=== PATIENT | female | born 1975 | race Caucasian/White ===

== ENCOUNTER 2020-10-16 14:52 | Observation (INO) | payer OTHER ==
[2020-10-16] MEDS ORDERED: NORMAL SALINE 500 ML IV ONE (15:19)
--- NOTE | 2020-10-16 15:19 | ER Document Report ---
ED Medical Screen (RME) - General Chief Complaint: Vomiting Stated Complaint: ABDOMINAL PAIN,VOMITING TRAVEL OUTSIDE OF THE [place] IN LAST 30 DAYS: No - HPI Notes: Rapid Medical Exam HPI: 45-year-old female presents to the ER complaining of epigastric pain since yesterday morning. Associated nausea and vomiting. Minimal p.o. intake. Only tolerating p.o. fluids. Denies bowel changes or urinary changes. No fevers or chills. No prior abdominal surgeries. Physical Exam: GENERAL: well-nourished and in mild distress due to pain/discomfort. HEAD: Atraumatic, normocephalic. ENT: Moist mucous membranes. RESP: Respirations even and unlabored CV- Regular rate. NEURO: No focal neurological deficits. Moves all extremities spontaneously and on command. My involvement in this patients care was limited to a rapid initial assessment. A comprehensive ED assessment and evaluation of the patient, analysis of test results, treatment, and completion of the medical decision making process will be performed by other ER providers. 10/16/20 15:16 Physical Exam - Vital signs Vitals: Temp Pulse Resp BP Pulse Ox 97.6 F 63 20 168/80 H 100 10/16/20 14:56 10/16/20 14:56 10/16/20 14:56 10/16/20 14:56 10/16/20 14:56 Course - Vital Signs Vital signs: Temp Pulse Resp BP Pulse Ox 97.6 F 63 20 168/80 H 100 10/16/20 14:56 10/16/20 14:56 10/16/20 14:56 10/16/20 14:56 10/16/20 14:56
--- NOTE | 2020-10-16 16:31 | RADIOLOGY REPORT (SQ) ---
EXAM DESCRIPTION: U/S ABDOMEN LIMITED W/O DOP IMAGES COMPLETED DATE/TIME: 10/16/2020 4:12 pm REASON FOR STUDY: epigastric pain w/ nausea/vomiting COMPARISON: None. TECHNIQUE: Dynamic and static grayscale images acquired of the abdomen and recorded on PACS. Additio nal selected color Doppler and spectral images recorded. LIMITATIONS: None. FINDINGS: PANCREAS: Suboptimal evaluation due to overlying bowel gas. LIVER: The liver measures 15.8 cm in length, within the upper limits of normal for size. Fatty live r. Focal fatty sparing near the caudate lobe. LIVER VASCULATURE: Normal directional flow of the main portal vein and hepatic veins. GALLBLADDER: No stones. The gallbladder wall measures 2.0 mm, normal wall thickness. No pericholecys tic fluid. ULTRASOUND-DETECTED MEZA'S SIGN: Negative. INTRAHEPATIC DUCTS AND COMMON DUCT: CBD measures 6.6 mm which is at the upper limits of normal. The intrahepatic ducts normal caliber. No filling defects. INFERIOR VENA CAVA: Normal flow. AORTA: No aneurysm. RIGHT KIDNEY: The right kidney measures 10.8 cm in length, normal size. Normal echogenicity. No liz d or suspicious masses. No hydronephrosis. No calcifications. PERITONEAL AND RIGHT PLEURAL SPACE: No ascites or effusions. OTHER: No other significant findings. IMPRESSION: 1. Fatty liver. 2. Suboptimal visualization of the pancreas due to overlying bowel gas. 3. The common bile duct measures 6.6 mm in diameter, at the upper limits of normal. TECHNICAL DOCUMENTATION: JOB ID: [id number] 2010 [employer]- All Rights Reserved Reading location - IP/workstation name: [email or web address]
[2020-10-16 17:10] LABS: APPEARANCE,URINE SLIGHTLY-CLOUDY; BILIRUBIN,URINE NEGATIVE (NEGATIVE); COLOR,URINE YELLOW; GLUCOSE, URINE NEGATIVE (NEGATIVE); KETONES,URINE 20 mg/dL (NEGATIVE); LEUKOCYTE ESTERASE,URINE SMALL (NEGATIVE); NITRITE,URINE NEGATIVE (NEGATIVE); PROTEIN,URINE 30 mg/dL (NEGATIVE); URINE SPECIFIC GRAVITY 1.023; UROBILINOGEN,URINE NEGATIVE mg/dL (<2.0)
[2020-10-16 18:17] LABS: HEMATOCRIT 42.1 % (36.0-47.0); HEMOGLOBIN 14.1 g/dL (12.0-15.5); MEAN CORPUSCULAR HEMOGLOBIN 29.1 pg (27.0-33.4); MEAN CORPUSCULAR HGB CONC 33.4 g/dL (32.0-36.0); MEAN CORPUSCULAR VOLUME 87 fl (80-97); PLATELET COUNT 246 10^3/uL (150-450); RED BLOOD COUNT 4.83 10^6/uL (3.72-5.28); RED CELL DISTRIBUTION WIDTH 13.8 % (11.5-14.0); WHITE BLOOD COUNT 18.8 10^3/uL (4.0-10.5)
--- NOTE | 2020-10-16 18:23 | ER Document Report ---
ED GI/ - General Chief Complaint: Abdominal Pain Stated Complaint: ABDOMINAL PAIN,VOMITING Time Seen by Provider: 10/16/20 18:01 Notes: Patient is a 45-year-old female presents emergency department with a chief complaint of right upper quadrant abdominal pain. Her symptoms started yesterday. Patient states that her pain got progressively worse. She has been nauseated and has been vomiting. Denies any diarrhea. Denies any past medical history. She does not take any medicines on a regular basis. TRAVEL OUTSIDE OF THE [place] IN LAST 30 DAYS: No - Related Data Allergies/Adverse Reactions: Sulfa (Sulfonamide Antibiotics) Allergy (Verified 10/16/20 15:21) Past Medical History - Social History Smoking Status: Never Smoker Chew tobacco use (# tins/day): No Frequency of alcohol use: None Drug Abuse: None Family History: Reviewed & Not Pertinent Review of Systems - Review of Systems Notes: REVIEW OF SYSTEMS: CONSTITUTIONAL : Denies recent illness. Denies recent unintentional weight loss. Denies fever, chills, or sweats. EENT: Denies eye, ear, throat, or mouth pain, discharge, or symptoms. Denies nasal or sinus congestion. CARDIOVASCULAR: Denies chest pain. RESPIRATORY: Denies shortness of breath, cough, congestion, difficulty breathing, or wheezing. GASTROINTESTINAL: See HPI. GENITOURINARY: Denies difficulty urinating, burning, blood in urine, urgency or frequency. MUSCULOSKELETAL: Denies neck and back pain. Denies joint pain or swelling. SKIN: Denies rash, itchiness, or lesions HEMATOLOGIC : Denies easy bruising or bleeding. LYMPHATIC: Denies swollen, painful, enlarged glands. NEUROLOGICAL: Denies no numbness or tingling denies weakness. Denies headache. Denies altered mental status. Denies alteration in speech. PSYCHIATRIC: Denies stress, anxiety, alteration in sleep patterns, or depres geraldo. All other systems reviewed and negative. Physical Exam - Vital signs Vitals: Temp Pulse Resp BP Pulse Ox 97.6 F 63 20 168/80 H 100 10/16/20 14:56 10/16/20 14:56 10/16/20 14:56 10/16/20 14:56 10/16/20 14:56 - Notes Notes: PHYSICAL EXAMINATION: GENERAL: Appears well, healthy, well-nourished, no acute distress. HEAD: Normocephalic, atraumatic. EYES: PERRL, conjunctiva normal, all extraocular movements intact, sclera nonicteric ENT: Moist mucous membranes. NECK: Supple, no noticeable swelling, redness, rash. Normal range of motion. LUNGS: Equal breath sounds bilaterally and clear to auscultation. No wheezes rales or rhonchi. CARDIOVASCULAR: S1-S2, regular rate, regular rhythm. Radial pulses 2+, normal. ABDOMEN: Normoactive bowel sounds. Very tender right upper quadrant abdomen. EXTREMITIES: Normal strength and range of motion, no pitting or edema. No cyanosis. NEUROLOGICAL: Moves all extremities upon command. Strength 5/5 in all extremities. PSYCH: Normal mood, normal affect. SKIN: Warm, dry. No rash, lesions, ulcerations noted. Normal skin turgor. Course - Re-evaluation Re-evalutation: 10/16/20 19:18 Patient has a leukocytosis of 18,800 with a left shift. Chemistries show sodium of 135 and a CO2 of 21. Patient received a liter of IV fluids. LFTs are all normal. Other chemistries are also normal. Urinalysis shows a mild amount of blood in her urine and a small amount of leukocytes. Will send her urine for culture. Patient's common bile duct is 6.6 mm in diameter. She does have a positive Mcbride sign based off my exam. I called Dr. Mena, the surgeon on- call. He will admit patient to the surgical floor. - Vital Signs Vital signs: Temp Pulse Resp BP Pulse Ox 97.6 F 63 20 168/80 H 100 10/16/20 14:56 10/16/20 14:56 10/16/20 14:56 10/16/20 14:56 10/16/20 14:56 - Laboratory Results Result Diagrams: 10/16/20 17:45 10/16/20 17:45 Laboratory Results Interpreted: 10/16/20 10/16/20 10/16/20 15:32 17:45 17:45 WBC 18.8 H Seg Neuts % (Manual) 88 H Lymphocytes % (Manual) 9 L Abs Neuts (Manual) 16.5 H Sodium 135.1 L Carbon Dioxide 21 L Glucose 127 H Urine Protein 30 H Urine Ketones 20 H Urine Blood MODERATE H Ur Leukocyte Esterase SMALL H Critical Laboratory Results Reviewed: No Critical Results - Radiology Results Critical Radiology Results Reviewed: No Critical Results Discharge - Discharge Clinical Impression: Cholecystitis, Right upper quadrant abdominal pain Condition: Stable Disposition: ADMITTED INPATIENT Admitting Provider: Surgicalist Unit Admitted: Surgical Floor
[2020-10-16] MEDS ORDERED: ONDANSETRON HCL INJ/PF 4 MG/2 ML SDV IV ONE (18:33)
[2020-10-16] MEDS ORDERED: HYDROMORPHONE HCL INJ/PF 2 MG/ML AMPULE IV ONE ×3 (18:33→23:38)
[2020-10-16 18:36] LABS: ABSOLUTE LYMPHOCYTES# (MANUAL) 1.7 10^3/uL (0.5-4.7); ABSOLUTE MONOCYTES # (MANUAL) 0.6 10^3/uL (0.1-1.4); BASOPHILS % (MANUAL) 0 % (0-2); EOSINOPHILS % (MANUAL) 0 % (0-6); LYMPHOCYTES % (MANUAL) 9 % (13-45); MONOCYTES % (MANUAL) 3 % (3-13); PLATELET COMMENT ADEQUATE; RBC MORPHOLOGY COMMENT NORMO-CYTIC/CHROMIC; SEGMENTED NEUTROPHILS % (MAN) 88 % (42-78); TOTAL CELLS COUNTED 100
[2020-10-16 18:57] LABS: ALBUMIN 4.1 g/dL (3.5-5.0); ALKALINE PHOSPHATASE 53 U/L (38-126); ANION GAP 9 (5-19); ASPARTATE AMINO TRANSFERASE 34 U/L (14-36); BILIRUBIN,DIRECT 0.2 mg/dL (0.0-0.4); BILIRUBIN,TOTAL 0.8 mg/dL (0.2-1.3); BLOOD UREA NITROGEN 8 mg/dL (7-20); CARBON DIOXIDE 21 mmol/L (22-30); CHLORIDE 105 mmol/L (98-107); GLUCOSE 127 mg/dL (75-110); POTASSIUM 4.3 mmol/L (3.6-5.0); TOTAL PROTEIN 7.3 g/dL (6.3-8.2)
[2020-10-16] MEDS ORDERED: CEFTRIAXONE INJ 1000 MG VIAL IV ONE (19:13)
[2020-10-16] MEDS ORDERED: CLINDAMYCIN 900 MG/D5W RTU 900 MG/50 ML RTUPB IV SCH (19:15)
--- NOTE | 2020-10-16 21:27 | ER Document Report ---
Doctor's Note Notes: 10/16/20 21:10 Dr. Mena reviewed patient's labs and ultrasound report and did not feel that patient needs surgical consultation at this time. He does not feel that patient's upper limits of normal common bile duct dilatation is worrisome for any biliary obstruction at this time. Patient without any elevated bilirubin or LFTs. He recommends chest x-ray and CT imaging to further evaluate the source of patient's pain symptoms. 10/16/20 21:27 Reevaluated patient, patient with right sided abdominal tenderness, no CVA tenderness. Patient reports pain 4 out of 5 at this time although denies needing any additional medication. 10/16/20 23:38 Patient's x-ray and CT report reviewed, patient findings worrisome for acute appendicitis. Consulted with surgeon Dr. Mena who does agree to accept patient for admission and plans to take her to the OR in the morning. Patient updated regarding plan of care at this time.
--- NOTE | 2020-10-16 23:00 | RADIOLOGY REPORT (SQ) ---
CHEST X-RAY 1 VIEW on 10/16/2020 at 10:32 PM CLINICAL INDICATION: Right upper quadrant abdominal pain COMPARISON: None FINDINGS: The lungs are clear. There is mild elevation of the right hemidiaphragm. Cardiac, hilar and mediastinal contours are within normal limits. Pulmonary vascularity is within normal limits. No bony abnormality is noted. IMPRESSION: No active disease.
--- NOTE | 2020-10-16 23:23 | RADIOLOGY REPORT (SQ) ---
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 Images were obtained after the administration of 100 mL of Omnipaque 350 intravenous contrast. FINDINGS: Limited evaluation of the lower chest reveals parenchymal bands about both lung bases, indicating areas of atelectasis and plus or scar. Assessment of the liver reveals a geographic area of hypodensity is noted about the left hepatic lobe adjacent to the falciform ligament, likely indicating third inflow artifact or focal fatty infiltration given its characteristic location. In addition, there is a small focus of hyperdensity located within the dome of the left hepatic lobe on image 21 of series 3 measuring 1.0 x 0.8 cm in size. Spleen, pancreas, gallbladder, and both adrenal glands appear normal. Kidneys enhance symmetrically. No hydronephrosis or hydroureter. The urinary bladder is well distended and shows no suspicious finding. Uterus shows no suspicious abnormality. Both ovaries are symmetric and configuration. An intrauterine contraceptive device is in position. A few scattered colonic diverticula are noted. No adjacent inflammation. However, the appendix is dilated and fluid-filled demonstrating adjacent inflammatory stranding as well as multiple appendicolith. No extraluminal free air or adjacent drainable fluid collections are identified. No evidence of bowel obstruction. Small fat-containing umbilical hernia. Vascular structures opacify with contrast normally. No suspicious lymphadenopathy is appreciated. No drainable fluid collections. Bone windows show no destructive osseous lesions. IMPRESSION: Findings are consistent with acute, uncomplicated appendicitis. Small hyperdense lesion located within the dome of the left hepatic lobe. In the absence of known primary malignancy or underlying chronic liver disease, this potentially corresponds to a flash filling hemangioma. Recommend definitive assessment with multiphasic CT or MR of the abdomen.
[2020-10-16] MEDS ORDERED: NORMAL SALINE 1000 ML 1,000 ML IV ONE (23:46)
[2020-10-16] MEDS ORDERED: ONDANSETRON HCL INJ/PF 4 MG/2 ML SDV IV PRN (23:53)
[2020-10-16] MEDS ORDERED: NORMAL SALINE 1000 ML 1,000 ML IV PRN (23:53)
--- NOTE | 2020-10-16 23:53 | PDOC H&P ---
History of Present Illness Admission Date/PCP: October 16, 2020 History of Present Illness: HUMA WINTERS is a 45 year old female, healthy with a 12-hour history of right-sided lower abdominal pain intense nausea. The patient denies any other systemic symptoms, she denies chills fever vomiting, or change of bowel habits. CT scan abdomen pelvis has been done which reveals acute nonperforated, uncomplicated appendicitis Social History Smoking Status: Never Smoker Electronic Cigarette use?: No Family History Family History: Reviewed & Not Pertinent Parental Family History Reviewed: No Children Family History Reviewed: No Sibling(s) Family History Reviewed.: No Medication/Allergy Home Medications: No Home Medications 10/16/20 Allergies/Adverse Reactions: Sulfa (Sulfonamide Antibiotics) Allergy (Verified 10/16/20 15:21) Physical Exam Vital Signs: Temp Pulse Resp BP Pulse Ox 97.6 F 63 16 150/79 H 97 10/16/20 14:56 10/16/20 14:56 10/16/20 21:17 10/16/20 22:31 10/16/20 22:31 Intake & Output 10/15/20 10/16/20 10/17/20 06:59 06:59 06:59 Intake Total 550 Balance 550 Weight 121.7 kg General appearance: PRESENT: mild distress, obese Head exam: PRESENT: atraumatic, normocephalic Eye exam: PRESENT: EOMI Mouth exam: PRESENT: moist, neck supple Neck exam: PRESENT: full ROM Respiratory exam: PRESENT: clear to auscultation otto Cardiovascular exam: PRESENT: RRR GI/Abdominal exam: PRESENT: soft - Not distended, no surgical scars noted, tenderness - Right lower quadrant with guarding and grimacing Rectal exam: PRESENT: deferred Extremities exam: PRESENT: full ROM Musculoskeletal exam: PRESENT: full ROM Neurological exam: PRESENT: alert, awake, oriented to time, CN II-XII grossly intact Psychiatric exam: PRESENT: anxious Skin exam: PRESENT: warm Results Laboratory Results: 10/16/20 17:45 10/16/20 17:45 10/16/20 10/16/20 10/16/20 15:32 17:45 17:45 WBC 18.8 H RBC 4.83 Hgb 14.1 Hct 42.1 MCV 87 MCH 29.1 MCHC 33.4 RDW 13.8 Plt Count 246 Seg Neutrophils % Not Reportable Sodium 135.1 L Potassium 4.3 Chloride 105 Carbon Dioxide 21 L Anion Gap 9 BUN 8 Creatinine 0.88 Est GFR ( Amer) > 60 Glucose 127 H Calcium 9.0 Total Bilirubin 0.8 AST 34 Alkaline Phosphatase 53 Total Protein 7.3 Albumin 4.1 Lipase 42.0 Urine Color YELLOW Urine Appearance SLIGHTLY-CLOUDY Urine pH 6.0 Ur Specific [place] 1.023 Urine Protein 30 H Urine Glucose (UA) NEGATIVE Urine Ketones 20 H Urine Blood MODERATE H Urine Nitrite NEGATIVE Ur Leukocyte Esterase SMALL H Urine WBC (Auto) 2 Urine RBC (Auto) 25 Impressions: Abdomen Ultrasound 10/16/20 15:19 IMPRESSION: 1. Fatty liver. 2. Suboptimal visualization of the pancreas due to overlying bowel gas. 3. The common bile duct measures 6.6 mm in diameter, at the upper limits of normal. Abdomen/Pelvis CT 10/16/20 21:25 IMPRESSION: Findings are consistent with acute, uncomplicated appendicitis. Small hyperdense lesion located within the dome of the left hepatic lobe. In the absence of known primary malignancy or underlying chronic liver disease, this potentially corresponds to a flash filling hemangioma. Recommend definitive assessment with multiphasic CT or MR of the abdomen. Chest X-Ray 10/16/20 21:25 IMPRESSION: No active disease. Assessment & Plan - Diagnosis (1) Abdominal pain Qualifiers: Abdominal location: unspecified location Qualified Code(s): R10.9 - Unspecified abdominal pain Is this a current diagnosis for this admission?: Yes (2) Appendicitis Qualifiers: Appendicitis type: acute appendicitis Acute appendicitis type: with localized peritonitis Qualified Code(s): K35.80 - Unspecified acute appendicitis Is this a current diagnosis for this admission?: Yes - Time Anticipated Discharge Disposition: Home, Self Care Anticipated Discharge Timeframe: within 48 hours - Plan Summary Plan Summary: Assessment: 45-year-old healthy female with a 12-hour history of right lower quadrant pain CT scan significant for acute appendicitis, uncomplicated, not perforated Leukocytosis 18,800 Remaining blood work and Covid test negative Plan: Admit N.p.o. IV fluids Antibiotics Rocephin and clindamycin Laparoscopic appendectomy possible open tomorrow morning
[2020-10-17] MEDS: FAMOTIDINE INJ/PF 20 MG/2 ML SDV IV SCH ×2 (01:36→11:21)
[2020-10-17] MEDS: MORPHINE SULFATE 10 MG/ML INJ IV PRN ×3 (01:43→10:36)
[2020-10-17] MEDS ORDERED: ACETAMINOPHEN 1,000 MG/100 ML RTUPB IV ONE (01:54)
[2020-10-17] MEDS: ACETAMINOPHEN 1,000 MG/100 ML RTUPB IV SCH ×2 (02:19→10:32)
[2020-10-17] MEDS ORDERED: CLINDAMYCIN 900 MG/D5W RTU 900 MG/50 ML RTUPB IV ONE (05:00)
[2020-10-17] MEDS: CEFTRIAXONE 2 GM/D5W RTU 2 GM/50 ML RTUPB IV SCH ×2 (06:22→11:21)
[2020-10-17] MEDS ORDERED: DEXAMETHASONE SOD PHOSPHATE INJ 4 MG/1 ML VIAL ONE (07:08)
[2020-10-17] MEDS ORDERED: ONDANSETRON HCL INJ/PF 4 MG/2 ML SDV ONE (07:08)
[2020-10-17] MEDS ORDERED: LIDOCAINE 2% INJ-PF (20 MG/ML) 10 ML AMPUL ONE (07:08)
[2020-10-17] MEDS ORDERED: MIDAZOLAM 2 MG/2 ML INJ ONE (07:08)
[2020-10-17] MEDS ORDERED: PROPOFOL INJ 200 MG/20 ML VIAL IV ONE (07:08)
[2020-10-17] MEDS ORDERED: FENTANYL CITRATE INJ/PF 100 MCG/2 ML AMPUL ONE (07:08)
[2020-10-17] MEDS ORDERED: BUPIVACAINE INJ/PF LIPOSOME/PF 266 MG/20 ML SDV ONE (07:13)
[2020-10-17] MEDS ORDERED: SUGAMMADEX SODIUM 200 MG/2 ML SDV IV ONE (09:17)
--- NOTE | 2020-10-17 09:29 | Operative Report ---
Nonrecallable Operative Report DATE OF SURGERY: 10/17/20 PREOPERATIVE DIAGNOSIS: Acute appendicitis POSTOPERATIVE DIAGNOSIS: Same OPERATION: Laparoscopic appendectomy ANESTHESIA: GA TISSUE REMOVED OR ALTERED: Appendix COMPLICATIONS: None ESTIMATED BLOOD LOSS: 10 cc PROCEDURE: Patient was brought to the operating awake alert in stable condition placed on the operating table supine position induced under general anesthesia and intubated. The abdomen was prepped and draped in usual sterile fashion for the procedure. After appropriate timeout and site verification the procedure commenced. Varies needle was placed into the umbilicus and the abdomen was insufflated with 6 L of CO2 gas and infraumbilical 5 mm incision was made with a 15 blade and a 5 mm port placed in the abdominal cavity intra-abdominal visualization revealed no evidence of Veress needle or trocar injury. Under direct vision the other 2 ports a 12 mm port in the left lower quadrant and a 5 mm suprapubic port were placed under direct vision. The appendix was visualized it was acutely separative it was placed on traction the mesoappendix was divided with 1 firing the Endo APPLE stapler with a white load and we came across the base of the appendix on the cecum with 1 firing the Endo APPLE stapler with a blue load. The appendix was then placed in the Endobag and removed through the left lower quadrant port site. The right lower quadrant and the pelvic space were irrigated with normal saline suctioned dry hemostasis was noted to be intact. The left lower quadrant fascial defect was then closed with 0 Vicryl and anesthetized with Exparel. The 3 skin incisions were then closed with intracuticular 4 oh bison Steri- Strips completed the procedure. Estimated blood loss was less than 10 cc sponge needle counts were correct x2 the patient was awakened in the operative extubated transferred recovery in stable condition no complications
--- NOTE | 2020-10-17 09:31 | PDOC DISCHARGE SUMMARY ---
General - Admit/Disc Date/PCP Admission Date/Primary Care Provider: 10/16/20 23:59 Discharge Date: 10/17/20 - Discharge Diagnosis Final Diagnosis: Acute appendicitis - Assessment Summary: Same thanks none patient was admitted early in the morning on 10/17/2020. Diagnosis of acute appendicitis was made on CT scan in the emergency room. She was taken to the operating room on the day of admission for a laparoscopic appendectomy. She underwent uncomplicated laparoscopic appendectomy. Noting at surgery that she had acute suppurative appendicitis. Postoperatively she had a routine benign postop course she was transferred to the nursing floor for recovery and then deemed ready for discharge home. She will be discharged home today and follow-up in surgical clinic in 7 to 10 days. She will be given [place] for pain - Additional Information Resuscitation Status: Full Code Home Medications: No Home Medications 10/16/20 History of Present Illiness History of Present Illness: HUMA WINTERS is a 45 year old female Physical Exam Vital Signs: Temp Pulse Resp BP Pulse Ox 99.2 F 83 18 124/62 95 10/17/20 04:37 10/17/20 04:37 10/17/20 04:37 10/17/20 04:37 10/17/20 04:37 Intake & Output 10/16/20 10/17/20 10/18/20 06:59 06:59 06:59 Intake Total 700 Balance 700 Weight 120.8 kg Results Laboratory Results: WBC 18.8 10^3/uL (4.0-10.5) H 10/16/20 17:45 RBC 4.83 10^6/uL (3.72-5.28) 10/16/20 17:45 Hgb 14.1 g/dL (12.0-15.5) 10/16/20 17:45 Hct 42.1 % (36.0-47.0) 10/16/20 17:45 MCV 87 fl (80-97) 10/16/20 17:45 MCH 29.1 pg (27.0-33.4) 10/16/20 17:45 MCHC 33.4 g/dL (32.0-36.0) 10/16/20 17:45 RDW 13.8 % (11.5-14.0) 10/16/20 17:45 Plt Count 246 10^3/uL (150-450) 10/16/20 17:45 Lymph % (Auto) Not Reportable 10/16/20 17:45 Harris % (Auto) Not Reportable 10/16/20 17:45 Eos % (Auto) Not Reportable 10/16/20 17:45 Baso % (Auto) Not Reportable 10/16/20 17:45 Absolute Neuts (auto) Not Reportable 10/16/20 17:45 Absolute Lymphs (auto) Not Reportable 10/16/20 17:45 Absolute Monos (auto) Not Reportable 10/16/20 17:45 Absolute Eos (auto) Not Reportable 10/16/20 17:45 Absolute Basos (auto) Not Reportable 10/16/20 17:45 Total Counted 100 10/16/20 17:45 Seg Neutrophils % Not Reportable 10/16/20 17:45 Seg Neuts % (Manual) 88 % (42-78) H 10/16/20 17:45 Lymphocytes % (Manual) 9 % (13-45) L 10/16/20 17:45 Monocytes % (Manual) 3 % (3-13) 10/16/20 17:45 Eosinophils % (Manual) 0 % (0-6) 10/16/20 17:45 Basophils % (Manual) 0 % (0-2) 10/16/20 17:45 Abs Neuts (Manual) 16.5 10^3/uL (1.7-8.2) H 10/16/20 17:45 Abs Lymphs (Manual) 1.7 10^3/uL (0.5-4.7) 10/16/20 17:45 Abs Monocytes (Manual) 0.6 10^3/uL (0.1-1.4) 10/16/20 17:45 Absolute Eos (Manual) 0.0 10^3/uL (0.0-0.6) 10/16/20 17:45 Abs Basophils (Manual) 0.0 10^3/uL (0.0-0.2) 10/16/20 17:45 Platelet Comment ADEQUATE 10/16/20 17:45 RBC Morph Comment NORMO-CYTIC/CHROMIC 10/16/20 17:45 Sodium 135.1 mmol/L (137-145) L 10/16/20 17:45 Potassium 4.3 mmol/L (3.6-5.0) 10/16/20 17:45 Chloride 105 mmol/L (98-107) 10/16/20 17:45 Carbon Dioxide 21 mmol/L (22-30) L 10/16/20 17:45 Anion Gap 9 (5-19) 10/16/20 17:45 BUN 8 mg/dL (7-20) 10/16/20 17:45 Creatinine 0.88 mg/dL (0.52-1.25) 10/16/20 17:45 Est GFR ( Amer) > 60 (>60) 10/16/20 17:45 Est GFR (MDRD) Non-Af > 60 (>60) 10/16/20 17:45 Glucose 127 mg/dL (75-110) H 10/16/20 17:45 Calcium 9.0 mg/dL (8.4-10.2) 10/16/20 17:45 Total Bilirubin 0.8 mg/dL (0.2-1.3) 10/16/20 17:45 Direct Bilirubin 0.2 mg/dL (0.0-0.4) 10/16/20 17:45 Neonat Total Bilirubin Not Reportable 10/16/20 17:45 Neonat Direct Bilirubin Not Reportable 10/16/20 17:45 Neonat Indirect Bili Not Reportable 10/16/20 17:45 AST 34 U/L (14-36) 10/16/20 17:45 ALT 32 U/L (<35) 10/16/20 17:45 Alkaline Phosphatase 53 U/L (38-126) 10/16/20 17:45 Total Protein 7.3 g/dL (6.3-8.2) 10/16/20 17:45 Albumin 4.1 g/dL (3.5-5.0) 10/16/20 17:45 Lipase 42.0 U/L (23-300) 10/16/20 17:45 Urine Color YELLOW 10/16/20 15:32 Urine Appearance SLIGHTLY-CLOUDY 10/16/20 15:32 Urine pH 6.0 (5.0-9.0) 10/16/20 15:32 Ur Specific [place] 1.023 10/16/20 15:32 Urine Protein 30 mg/dL (NEGATIVE) H 10/16/20 15:32 Urine Glucose (UA) NEGATIVE mg/dL (NEGATIVE) 10/16/20 15:32 Urine Ketones 20 mg/dL (NEGATIVE) H 10/16/20 15:32 Urine Blood MODERATE (NEGATIVE) H 10/16/20 15:32 Urine Nitrite NEGATIVE (NEGATIVE) 10/16/20 15:32 Urine Bilirubin NEGATIVE (NEGATIVE) 10/16/20 15:32 Urine Urobilinogen NEGATIVE mg/dL (<2.0) 10/16/20 15:32 Ur Leukocyte Esterase SMALL (NEGATIVE) H 10/16/20 15:32 Urine WBC (Auto) 2 /HPF 10/16/20 15:32 Urine RBC (Auto) 25 /HPF 10/16/20 15:32 U Hyaline Cast (Auto) 1 /LPF 10/16/20 15:32 Squamous Epi Cells Auto 5 /HPF 10/16/20 15:32 Urine Mucus (Auto) FEW /LPF 10/16/20 15:32 Urine Ascorbic Acid NEGATIVE (NEGATIVE) 10/16/20 15:32 Urine HCG, Qual NEGATIVE (NEGATIVE) 10/16/20 15:32 Influenza A (RT-PCR) NEGATIVE (NEGATIVE) 10/16/20 20:45 Influenza B (RT-PCR) NEGATIVE (NEGATIVE) 10/16/20 20:45 RSV (RT-PCR) NEGATIVE (NEGATIVE) 10/16/20 20:45 SARS-CoV-2 Rap RNA(RT-PCR) NEGATIVE (NEGATIVE) 10/16/20 20:45 Impressions: Abdomen Ultrasound 10/16/20 15:19 IMPRESSION: 1. Fatty liver. 2. Suboptimal visualization of the pancreas due to overlying bowel gas. 3. The common bile duct measures 6.6 mm in diameter, at the upper limits of normal. Abdomen/Pelvis CT 10/16/20 21:25 IMPRESSION: Findings are consistent with acute, uncomplicated appendicitis. Small hyperdense lesion located within the dome of the left hepatic lobe. In the absence of known primary malignancy or underlying chronic liver disease, this potentially corresponds to a flash filling hemangioma. Recommend definitive assessment with multiphasic CT or MR of the abdomen. Chest X-Ray 10/16/20:25 IMPRESSION: No active disease.
--- NOTE | 2020-10-17 09:34 | Discharge Summary ---
Discharge Summary (SDC) - Discharge Final Diagnosis: Acute appendicitis Date of Surgery: 10/17/20 Discharge Date: 10/17/20 Condition: Good Prescriptions: Hydrocodone/Acetaminophen [[place] 10-325 mg Tablet] 1 tab PO Q6HP PRN #10 tablet PRN Reason: Discharge Activity: Activity As Tolerated, No Lifting Over 10 Pounds Report the Following to Your Physician Immediately: Fever over 101 Degrees, Unusual Bleeding
--- NOTE | 2020-10-17 10:25 | EKG REPORT ---
SEVERITY:- NORMAL ECG - SINUS RHYTHM : Confirmed by: Joana Lemus MD 17-Oct-2020 10:24:51
[2020-10-17] MEDS ORDERED: PROMETHAZINE HCL INJ 25 MG/1 ML VIAL IV PRN ×2 (11:04)
[2020-10-17] MEDS ORDERED: MORPHINE SULFATE 10 MG/ML INJ IV PRN (11:04)
[2020-10-17] MEDS ORDERED: OXYCODONE-ACETAMINOPHEN 5-325 MG TABLET PO PRN ×2 (11:04)
[2020-10-17] MEDS ORDERED: FENTANYL CITRATE INJ/PF 100 MCG/2 ML AMPUL IV PRN ×3 (11:04)
[2020-10-17] MEDS ORDERED: DIPHENHYDRAMINE HCL 50 MG/ML VIAL IV PRN (11:04)
[2020-10-17 13:33] VITALS: BP 115/59
[2020-10-17] MEDS ORDERED: CLINDAMYCIN 900 MG/D5W RTU 900 MG/50 ML RTUPB IV SCH (14:00)
[2020-10-17] MEDS ORDERED: INFLUENZA QUAD (6MOS+) 2020-21 VAC 0.5 ML SYR IM ONE (14:15)
[2020-10-18] MEDS ORDERED: INFLUENZA QUAD (6MOS+) 2020-21 VAC 0.5 ML SYR IM ONE (08:00)
== END 2020-10-17 14:37 | disposition home or self-care (01) ==
LOC: ER 14:52 → EH 19:49 → UNDOADMIN 19:49 → EH 23:59 → INTOOBSV 23:59 → 2N 10-17 00:43 → UNDODISIN 10-17 14:30
PROVIDERS: ADMIT Surgery; ATTEND Surgery
DX: K35.80 Unspecified acute appendicitis (principal); Z01.812 Encounter for preprocedural laboratory examination; Z20.822 Contact with and (suspected) exposure to COVID-19; Z23 Encounter for immunization; E66.01 Morbid (severe) obesity due to excess calories; Z86.32 Personal history of gestational diabetes
CPT/HCPCS: 96376; 99285; 96361; 96375; 96365; 96368; 36415 ×2; 87040; 87086; 83690; 85025; 0241U ×4; 81025; 80053; 81001; 88304 ×2; 71045; 76705; 74177; 90686; 93005; 93010; 44970; G0378; G0008; C1758; J2250; J1100; J3010; J3490 ×4; J2270; J1170; J0696 ×2; J2405 ×2; J7030; J7040; J2704; S0028; J0131; C9290; C9803; 840; 90471; 99140